=== PATIENT | female | born 1985 | race Caucasian/White ===

== ENCOUNTER 2017-08-10 18:32 | Emergency (ER) | payer OTHER ==
[~2017-08-10] VITALS: Ht 162.6 cm; Wt 72.6 kg
[2017-08-10] MEDS ORDERED: SENNA LAXATIVE8.6 MG PO ×2 (18:51→18:53)
[2017-08-10] MEDS ORDERED: COLACE100 MG PO (18:52)
[2017-08-10] MEDS ORDERED: MAGNESIUM CITR296 ML PO (18:52)
[2017-08-10] MEDS ORDERED: MIRALAX17 GM PO (18:53)
[2017-08-10] MEDS ORDERED: ACETAMINOP-CODEI5 ML PO (18:57)
[2017-08-10] MEDS ORDERED: IBU600 MG PO (18:58)
== END 2017-08-10 20:34 | disposition short-term general hospital (02) ==
LOC: ED 18:32
DX: K59.00 Constipation, unspecified (principal); Z90.89 Acquired absence of other organs; Z88.2 Allergy status to sulfonamides; Z79.899 Other long term (current) drug therapy
CPT/HCPCS: 74018; 96360; 99284; J7030

== ENCOUNTER 2021-02-03 02:58 | Inpatient (IN) | payer OTHER ==
[~2021-02-03] VITALS: Ht 162.6 cm; Wt 86.2 kg
[~2021-02-03 02:58] MED LIST: ACETAMINOP-CODEI5 ML PO; COLACE100 MG PO; IBU600 MG PO; MAGNESIUM CITR296 ML PO; MIRALAX17 GM PO; SENNA LAXATIVE8.6 MG PO
--- NOTE | 2021-02-03 08:16 | PR ---
[facility] [address] [facility] [place] [place] [address] Signed Progress Notes IP Datetime Report Generated by CPN: 02/03/2021 08:16 PROGRESS NOTES: [id number] Impression: Normal Progression of Labor; Reassuring Heart Rate Other Impressions: Possible SROM Procedures: Sterile Vag Exam Other Procedures: Bedside US confirms vertex well applied Plan: Continue Present Management; Anticipate Vaginal Delivery Informed Consent Obtain: Vaginal Delivery VITAL SIGNS: [id number] Vital Signs: Reviewed; Within Normal Limits EXAM: [id number] Dilatation: 5.0 Effacement: 80 Station: -3 Contractions: Irregular MEMBRANES: [id number] Comments: Pt seen and examined. Doing well. CTXs increasing in frequency and intensity. FETUS A: [id number] FHR Baseline: 130 Variability: Moderate 6-25bpm Accelerations: 15X15 Decelerations: None FHR Category: Category I Presentation: Vertex Other Presentation: Confirmed by Bedside US Comments on Fetus A: No evidence of metabolic acidosis FETUS B: [id number] Signing Physician: Robert Bolivar DO Copies: ~ *Electronically Signed* 02/03/21 0816 ROBERT BOLIVAR DO PATIENT NAME: DEEPTI LEOS PROGRESS NOTE DATE OF : 85 PHYSICIAN: ROBERT BOLIVAR DO RPT #: [id number] REPORT IS CONFIDENTIAL AND NOT TO BE RELEASED WITHOUT AUTHORIZATION
--- NOTE | 2021-02-03 12:31 | PR ---
[facility] [address] [address] [facility] [place] [address] Signed Progress Notes IP Datetime Report Generated by CPN: 02/03/2021 12:31 PROGRESS NOTES: [id number] Impression: Normal Progression of Labor; Reassuring Heart Rate Other Impressions: Possible SROM Procedures: Sterile Vag Exam Other Procedures: Bedside US confirms vertex well applied Plan: Anticipate Vaginal Delivery Informed Consent Obtain: Vaginal Delivery VITAL SIGNS: [id number] Vital Signs: Reviewed; Within Normal Limits EXAM: [id number] Dilatation: 10.0 Effacement: 80 Station: -2 Contractions: Irregular MEMBRANES: [id number] Comments: Pt seen and examined. Comfortable w/ contractions. Complete and feeling some pressure. Will prepare for delivery. FETUS A: [id number] FHR Baseline: 130 Variability: Moderate 6-25bpm Accelerations: 15X15 Decelerations: None FHR Category: Category I Presentation: Vertex Other Presentation: Confirmed by Bedside US Comments on Fetus A: No evidence of metabolic acidosis FETUS B: [id number] Signing Physician: Robert Bolivar DO Copies: ~ *Electronically Signed* 02/03/21 1231 ROBERT BOLIVAR DO PATIENT NAME: DEEPTI LEOS PROGRESS NOTE DATE OF : 85 PHYSICIAN: ROBERT BOLIVAR DO RPT #: [id number] REPORT IS CONFIDENTIAL AND NOT TO BE RELEASED WITHOUT AUTHORIZATION
--- NOTE | 2021-02-04 09:49 | PR ---
[facility] [address] [place], [place] [address] Signed PP Progress Notes Datetime Report Generated by CPN: 02/04/2021 09:49 SUBJECTIVE: [id number] Pain: Within Normal Limits Nausea/Vomiting: Denies Flatus: Yes Bowel Movement: No Vital Signs: [id number] Vital Signs: Reviewed; Within Normal Limits Cardiovascular: Normal Respiratory: Normal Abdomen/Uterus: Normal Lochia: Normal Vulva/Perineum: Not Done Breasts: Not Done CVA Tenderness: Normal Extremities: Normal Incision: Not Applicable Progress: Normal Exam Comments: Fundus firm U -2 nontender IMPRESSION/PLAN/PROCEDURES: [id number] Impression: Normal Progression Other Impression: Hx of depression Plan: Discharge Progress Notes: Pt seen and examined. Doing well. Ambulating, voiding, and tolerating full diet. Lochia minimal but reports severe after pains especially w/ . Improved w/ oral narcotics and pt requesting small rx of [place] pp. Reviewed multimodal pain management in detail. Pt reports normal mood but hx of depression and would like to start antidepressant. Rx for Zoloft written. F/U in 2 wks. D/C home; planning vasectomy for pp depression Signing Physician: Robert Bolivar DO Copies: ~ *Electronically Signed* 02/04/21 0949 ROBERT BOLIVAR DO PATIENT NAME: DEEPTI LEOS PROGRESS NOTE DATE OF : 85 PHYSICIAN: ROBERT BOLIVAR DO RPT #: [id number] REPORT IS CONFIDENTIAL AND NOT TO BE RELEASED WITHOUT AUTHORIZATION
== END 2021-02-04 15:21 | disposition home or self-care (01) | DRG 807 ==
LOC: FBCO 02:58 → FBC 03:19
PROVIDERS: ADMIT Obstetrics & Gynecology; ATTEND Obstetrics & Gynecology
PROC: 10E0XZZ Delivery of Products of Conception, External Approach (ICD-10-PCS; principal; 2021-02-03)
PROC: 3E0R3BZ Introduction of Anesthetic Agent into Spinal Canal, Percutaneous Approach (ICD-10-PCS; 2021-02-03)
PROC: 00HU33Z Insertion of Infusion Device into Spinal Canal, Percutaneous Approach (ICD-10-PCS; 2021-02-03)
DX: O43.123 Velamentous insertion of umbilical cord, third trimester (principal); Z37.0 Single live birth; Z3A.37 37 weeks gestation of pregnancy; Z98.890 Other specified postprocedural states
CPT/HCPCS: 01960; 85027; A9270; J2405; J2590; J2795; J3010; J7121; U0003